=== PATIENT | male | born 1950 | race Caucasian/White ===

== ENCOUNTER 2020-05-30 05:09 | Emergency (ER) | payer MEDICARE, OTHER, SELFPAY ==
[2020-05-30 05:13] VITALS: BP 183/97; PULSE 84; RESP 18; TEMP 36.9; O2SAT 95; BMI 35.6
[2020-05-30] MEDS: famotidine 20 mg/2 mL INJ 40 MG IVP (05:20)
[2020-05-30] MEDS: diphenhydrAMINE 50 mg/mL SDV 1mL IVP (05:21)
--- NOTE | 2020-05-30 05:21 | W.ED.ALLEREA ---
HPI - Allergic Reaction General: Chief complaint: Allergic Reaction Stated complaint: swollen tongue Time Seen by Provider: 05/30/20 05:09 Source: patient Mode of arrival: ambulatory Limitations: no limitations History of Present Illness: HPI narrative: 70-year-old male who has a history of allergic reactions in the past. He states that he has had tongue swelling in the past and typically would go down on its own. He states that the swelling throughout the night does have angioedema here. He states he has some slight shortness of breath. He is handling his secretions well. He is not on any ANNIE inhibitor's. He states he has been getting rashes as well and has been taking Benadryl at home. He denies any worsening or improving factors. Denies any chest pain. MD complaint: allergic reaction Associated symptoms: Deny abdominal pain, nausea or vomiting Review of Systems Const: Denies: fever(s), chills, body aches or change in appetite Eyes: Denies: blurry vision or eye discomfort ENMT: Reports: swelling of lips/tongue; Denies: throat pain or dental pain Card: Denies: chest pain Resp: Denies: dyspnea GI: Denies: abdominal pain, nausea, vomiting or diarrhea : Denies: dysuria Musc: Denies: neck pain or back pain Skin/Breast: Denies: rash Neuro: Denies: headache(s) Psych: Denies: depression Young/Lymph: Denies: easy bruising All/Imm: Denies: urticaria Physical Exam Const: COMMON NORMALS: no acute distress, patient oriented x3 and healthy appearing HENMT: COMMON NORMALS: normocephalic and atraumatic HEAD & SCALP: normocephalic and atraumatic OTHER: Angioedema of tongue. He is handling his secretions well. No respiratory distress at this time. Eye: COMMON NORMALS: Equal, round and reactive pupils present and EOMs intact bilaterally PUPIL: Yes Equal, round and reactive pupils present Neck/C-Spine: COMMON NORMALS: full ROM and supple Chest: COMMONS NORMALS: normal inspection of the chest and normal palpation of entire chest wall Resp: COMMON NORMALS: normal respiratory effort, No retractions, No use of accessory muscles and clear to auscultation bilaterally AUSCULTATION: clear to auscultation bilaterally Cardio: COMMON NORMALS: regular rate, regular rhythm and No murmurs present (Cardio) RATE: regular rate RHYTHM: regular rhythm GI: COMMON NORMALS: Normal to inspection, nondistended, normoactive bowel sounds present, Soft to palpation, non-tender and no masses PALPATION: Yes Soft to palpation Extremity: COMMON NORMALS: normal to inspection and full ROM Neuro: COMMON NORMALS: patient oriented x3, moves all extremities and no focal motor deficits Psych: COMMON NORMALS: mental status grossly normal, Normal thought process present and cooperative THOUGHT PROCESS: Normal thought process present Skin: COMMON NORMALS: no rashes or lesions noted and no wounds GENERAL SKIN EXAM: no rashes or lesions noted Course Vital Signs: Vital signs: Vital Signs Temperature 98.4 F 05/30/20 05:13 Pulse Rate 85 05/30/20 06:20 Respiratory Rate 16 05/30/20 06:20 Blood Pressure 132/62 05/30/20 06:20 Pulse Oximetry 94 05/30/20 06:20 MDM - Allergic Reaction MDM Narrative: Medical decision making narrative: Patient presents here with angioedema moderate in nature. He has been handling his secretions well here and has had no distress respiratory distress. He does have moderate tongue swelling. I see no posterior pharynx swelling on exam. He has no lip swelling. Patient was given epinephrine along with Solu-Medrol and Pepcid. Patient has had improvement here. I did recommend admission. Patient was seen in the ER by hospitalist in which she told hospitalist she want to go home. I came and spoke to patient at length along with his . He states he had this multiple times before but always gets better. He states he is feeling much better already and he is speaking much better and the swelling is going down. He states that he does not want to be admitted and would like to be discharged. We will watch him till 7 if he continues to improve he states he wants to leave at 7. Lab Data: Labs: Lab Results 05/30/20 05/30/20 Range/Units 05:18 05:18 WBC 6.7 (4.0-10.0) 10^3/ uL RBC 5.24 (4.1-5.3) 10^6/u L Hgb 15.6 (11.7-16.6) g/dL Hct 47.4 (42.0-52.0) % MCV 90.5 (80-94) fL MCH 29.8 (28.0-34.0) pg MCHC 32.9 (30.0-36.0) g/dL RDW 13.1 (12.1-15.1) % Plt Count 271 (130-400) 10^3/c mm MPV 10.8 H (7.4-10.4) fL Neut % (Auto) 40.7 % Lymph % (Auto) 44.0 % Preble % (Auto) 8.9 % Eos % (Auto) 5.4 % Baso % (Auto) 0.5 % Neut # (Auto) 2.72 (1.8-7.7) 10^3/u L Lymph # (Auto) 2.9 (0.8-4.8) 10^3/u L Preble # (Auto) 0.6 (0.2-0.9) 10^3/u L Eos # (Auto) 0.4 (0.0-0.8) 10^3/u L Baso # (Auto) 0.0 (0.0-0.1) 10^3/u L Nucleated RBC % (a uto) 0 % Nucleated RBCs # 0.0 /100WBC Sodium 141 (136-145) mmol/L Potassium 4.1 (3.5-5.1) mmol/L Chloride 101 (98-107) mmol/L Carbon Dioxide 28 (22-29) mmol/L Anion Gap 16.1 (5-19) BUN 12 (8-23) mg/dL Creatinine 0.7 (0.7-1.2) mg/dL GFR Calculation 112.1 (90-130) mL/min Glucose 173 H (65-115) mg/dL Calculated Osmolal ity 296 H (285-295) mOsm/k g Calcium 9.9 (8.5-10.5) mg/dL Total Bilirubin 0.4 (0.15-1.2) mg/dL AST 19 (0-40) U/L ALT 25 (0-41) U/L Alkaline Phosphata se 94 (40-130) IU/L Total Protein 7.3 (6.6-8.7) g/dL Albumin 4.7 (3.5-5.2) g/dL Globulin 2.6 (1.3-4.6) g/dL Critical Care Time Critical Care Time: Critical Care Time: Yes Total Critical Care Time: 36 Attestation: This case had a high probability of a clinically significant, sudden, or life threatening deterioration of this patient's condition which required my full and direct attention, intervention and personal management. Discharge Plan Discharge Patient Disposition: Home Clinical Impression: Angioedema Qualifiers: Encounter type: initial encounter Qualified Code(s): T78.3XXA - Angioneurotic edema, initial encounter Condition: Stable Discharge Orders: Discharge Order (Routine); Ordered 05/30/20 Ordered By: Yue Gonzales Discharge ED (Routine); Ordered 05/30/20 Ordered By: Yue Gonzales Discharge Diet: Advance as tolerated Discharge Activity: Resume usual activity Coding Level of Care Code ED [employer] Exam Comprehensive
[2020-05-30 05:23] LABS: Basophils % 0.5 %; Eosinophils # 0.4 10^3/uL (0.0-0.8); Eosinophils % 5.4 %; Hematocrit 47.4 % (42.0-52.0); Hemoglobin 15.6 g/dL (11.7-16.6); Lymphocytes # 2.9 10^3/uL (0.8-4.8); Mean Corpuscular HGB Conc 32.9 g/dL (30.0-36.0); Mean Corpuscular Hemoglobin 29.8 pg (28.0-34.0); Mean Corpuscular Volume 90.5 fL (80-94); Mean Platelet Volume 10.8 fL (7.4-10.4); Monocytes # 0.6 10^3/uL (0.2-0.9); Monocytes % 8.9 %; Neutrophils # 2.72 10^3/uL (1.8-7.7); Neutrophils % 40.7 %; Nucleated Red Blood Cells % 0 %; Platelet Count 271 10^3/cmm (130-400); Red Blood Count 5.24 10^6/uL (4.1-5.3); Red Cell Distribution Width 13.1 % (12.1-15.1); White Blood Count 6.7 10^3/uL (4.0-10.0)
[2020-05-30] MEDS: EPINEPHrine 1 mg/mL INJ 0.3 MG IM (05:23)
[2020-05-30 05:57] LABS: Alanine Aminotransferase 25 U/L (0-41); Albumin Level 4.7 g/dL (3.5-5.2); Alkaline Phosphatase 94 IU/L (40-130); Anion Gap 16.1 (5-19); Aspartate Amino Transferase 19 U/L (0-40); Blood Urea Nitrogen 12 mg/dL (8-23); Calcium 9.9 mg/dL (8.5-10.5); Carbon Dioxide 28 mmol/L (22-29); Chloride 101 mmol/L (98-107); Globulin 2.6 g/dL (1.3-4.6); Glomerular Filtration Rate 112.1 mL/min (90-130); Glucose 173 mg/dL (65-115); Osmolality Calculated 296 mOsm/kg (285-295); Potassium 4.1 mmol/L (3.5-5.1); Sodium 141 mmol/L (136-145); Total Bilirubin 0.4 mg/dL (0.15-1.2); Total Protein 7.3 g/dL (6.6-8.7)
[2020-05-30 06:20] VITALS: BP 132/62; PULSE 85; RESP 16; O2SAT 94
--- NOTE | 2020-05-30 06:23 | PC.NURSE ---
Pt states he does not want to stay even though dr would like them to.
[2020-05-30 07:46] VITALS: BP 140/78; PULSE 78; RESP 18; O2SAT 97
== END 2020-05-30 07:05 | disposition home or self-care (01) ==
LOC: ER 06:01 → ICU 06:22
PROVIDERS: Emergency Provider Emergency Medicine; PCP Family Medicine
DX: T78.3XXA Angioneurotic edema, initial encounter (principal)
CPT/HCPCS: 80053; 85025; 96372; 96374; 96375; 99284; J0171; J1200; J2930; J3490

== ENCOUNTER → 2021-11-26 09:08 | Outpatient (BNVA) | payer MEDICARE, OTHER, SELFPAY | PROVIDERS: PCP Family Medicine; Visit Provider Family Medicine | DX: R63.5 Abnormal weight gain (principal); R60.9 Edema, unspecified; R14.0 Abdominal distension (gaseous); R53.83 Other fatigue; R63.0 Anorexia; Z86.39 Personal history of other endocrine, nutritional and metabolic disease | CPT/HCPCS: 80053; 83690; 84443; 85025; 85651 ==

== ENCOUNTER 2021-11-30 08:37 | Emergency (ER) | payer MEDICARE, OTHER, SELFPAY ==
[2021-11-30 08:39] VITALS: BMI 34.0
[2021-11-30 08:45] VITALS: BP 132/97; PULSE 101; RESP 20; O2SAT 100
--- NOTE | 2021-11-30 08:59 | CT_ITS ---
WS: [id number] CT ABDOMEN PELVIS TECHNIQUE: Contrast-enhanced CT of the abdomen and pelvis with coronal and sagittal reformatted image s. CLINICAL INFORMATION: abd pain COMPARISON: None. DLP: 1170.[address] scans at [facility] use at least one of these dose optimization techniques: automated e xposure control; mA and/or kV adjustment per patient size (includes targeted exams where dose is matc hed to clinical indication); or iterative reconstruction. FINDINGS: Diffuse moderate to large abdominal ascites. Tiny LEFT pleural effusion. Subsegmental atelectasis in the lingula and lung bases. Perihepatic and perisplenic ascites. Normal GE junction. Air-fluid level in the stomach. Liver appears cirrhotic. Recommend correlation with liver function tests. Fatty atrop hy of the pancreas. Portal vein is patent. Adrenal glands are normal. Normal renal parenchymal enhanc ement. No hydronephrosis. Mesenteric induration in the mid and upper abdomen can be seen with edema but peritoneal carcinomatos is are not excluded. Enhancing small bowel loops are displaced into the midabdomen with mesenteric in duration. Normal caliber abdominal aorta. Celiac and SMA are patent. A few sigmoid diverticuli. Mild diffuse body wall anasarca. No evidence of high-grade small or large bowel obstruction. No periaortic or pelvic lymphadenopathy. No inguinal lymphadenopathy. CT/CT abdomen pelvis w con* [id number] IMPRESSION: 1. Moderate to large amount of abdominal ascites. 2. Cirrhotic configuration to the liver. Recommend correlation with liver func tion tests. 3. Induration in the mesentery may be due to edema but can be seen with perito corbin carcinomatosis. Peritoneal fluid could be sent for cytology. 4. Subsegmental atelectasis in the lung bases. No periaortic or pelvic lymphad enopathy. No inguinal lymphadenopathy. 5. Mild diffuse body wall anasarca. 6. Clustering of enhancing small bowel loops in the central abdomen with mesen teric induration. Although no evidence of high-grade small or large bowel obstr uction.
--- NOTE | 2021-11-30 08:59 | ECG_ITS ---
[facility] Test Date: 2021-11-30 Pat Name: Amauri Cruz Department: Room: Gender: Male Scuba Diver: : 1950 Requested By: Roldan Alvarez Order Number: [id number] Laura MD: Shauna Thorpe M.D. Measurements Intervals [place] Rate: 93 P: 12 MO: 179 QRS: -5 QRSD: 112 T: 7 QT: 375 QTc: 468 Interpretive Statements SINUS RHYTHM WITH OCCASIONAL SUPRAVENTRICULAR PREMATURE COMPLEXES POSSIBLE ANTERIOR MYOCARDIAL INFARCTION , PROBABLY OLD [30 ms Q WAVE IN V3/V4, OR R < 0.2 mV IN V4] No previous ECG available for comparison Electronically Signed On 11-30-2021 13:53:51 CDT by Shauna Thorpe M.D. [id number]
--- NOTE | 2021-11-30 09:00 | XR_ITS ---
WS: [id number] XR chest 1V portable [id number] REASON FOR EXAM: dyspnea FINDINGS: Moderate tortuosity and ectasia of the thoracic aorta. Normal heart size. Elevation of both hemidiaphragms. Blunting of both costophrenic angles more prominently on the right. Linear lung opacities adjacent to the elevated hemidiaphragms, likely atelectasis. No acute pulmonary parenchymal abnormality is identified. The stomach is moderately distended. XR/XR chest 1V portable [id number] IMPRESSION: Bilateral pleural fluid and/or pleural thickening. No acute pulmonary parenchymal abnormality. Distended stomach.
--- NOTE | 2021-11-30 09:01 | W.ED.ABDPA2 ---
HPI - Abdominal Pain General: Chief Complaint: Abdominal Pain Stated Complaint: bloated Time Seen by Provider: 11/30/21 08:46 Source: patient Mode of arrival: ambulatory History of Present Illness: 71-year-old male presents to the emergency room with complaints of bloating. He notes over the last several weeks had increased bloating to his abdomen he has gained several pounds in the last few days. It is causing him to have difficulty with activity he has noticed that he gets fatigued more and winded more easily. He has some moderate orthopnea. He denies any chest pain no recent fever sweats chills bowel bladder been unchanged from his usual routine. He occasionally has had some streaking blood on the outside of stools after difficult bowel movement but otherwise no other abnormality. He has no history of heart disease or liver disease he denies being a heavy drinker. No history of hepatitis. No jaundice. His appetite has been poor but he has been able to eat and drink without nausea or vomiting no hematochezia melena hematemesis coffee-ground emesis. Onset (ago): week(s) Pain Consistency: constant Location: Diffuse Severity: severe Quality: fullness Radiation: none Migration to: no migration Exacerbating factors: nothing Relieving factors: nothing Associated Symptoms: Reports anorexia, bloating, GI cramping, nausea and poor appetite; Denies belching, change in bowel habits, change in stool character, chills, coffee ground emesis, constipation, diarrhea, dyspepsia, dysuria, excessive flatus, fever(s), heartburn, hematochezia, hematuria, hematemesis, fecal incontinence, loose stools, melena, syncope and vomiting Review of Systems Const: Denies: fever(s) or chills Card: Denies: syncope GI: Reports: nausea, early satiety, bloating and GI cramping; Denies: vomiting, hematemesis, coffee ground emesis, heartburn, diarrhea, constipation, belching, excessive flatus, fecal incontinence, change in bowel habits, change in stool character, hematochezia or melena : Denies: flank pain, difficulty urinating, dysuria, urinary frequency, urinary urgency or hematuria PFS ED PFSH: Medical History History of hypothyroidism Hx of type 2 diabetes mellitus Social History Smoking and tobacco status: never smoked Second hand smoke exposure: No Smoking risk assessment/counseling performed?: No Alcohol intake: never Desire information about alcohol rehabilitation?: No Counseling given: No Desire information about substance/drug rehabilitation?: No Counseling given: No Adopted: No Caregiver/support person: No Lives independently: No Household members: spouse Housing: Manufactured/Mobile home Marital status: Number of children: 3 Highest education level completed: High School Graduate service: Yes Current occupational status: retired History of recent travel: No Physical Exam Const: COMMON NORMALS: no acute distress GENERAL APPEARANCE: cooperative and comfortable ORIENTATION/CONSCIOUSNESS: Yes awake, Yes oriented to person, Yes oriented to place and Yes oriented to time HENMT: COMMON NORMALS: normocephalic, atraumatic and hearing grossly normal bilaterally HEAD & SCALP: normocephalic and atraumatic Resp: COMMON NORMALS: normal respiratory effort, No retractions, No use of accessory muscles and clear to auscultation bilaterally AUSCULTATION: clear to auscultation bilaterally Cardio: COMMON NORMALS: regular rate, regular rhythm and No murmurs present (Cardio) RATE: regular rate RHYTHM: regular rhythm GI: COMMON NORMALS: Soft to palpation and No hepatosplenomegaly present INSPECTION: Yes abdominal distension and Yes Fluid wave present AUSCULTATION: Yes normoactive bowel sounds PALPATION: Yes Soft to palpation, No Tenderness to palpation present (GI), No Guarding due to palpation present (GI) and Yes No hepatosplenomegaly present PERCUSSION: dullness to percussion and Fluid wave present Extremity: COMMON NORMALS: normal to inspection, capillary refill normal, no clubbing, cyanosis or edema, no calf tenderness and no pedal edema Neuro: SENSORIUM/ORIENTATION: Yes oriented to person, Yes oriented to place and Yes oriented to time Skin: COMMON NORMALS: no rashes or lesions noted GENERAL SKIN EXAM: no rashes or lesions noted Course Vital Signs: Vital signs: Vital Signs Pulse Rate 101 H 11/30/21 08:45 Respiratory Rate 20 H 11/30/21 08:45 Blood Pressure 132/97 11/30/21 08:45 Pulse Oximetry 100 11/30/21 08:45 Oxygen Delivery Me thod 11/30/21 08:45 MDM - Abdominal Pain Medical Decision Making Ascites with tethering of the small bowel. Patient has had previous umbilical hernia surgery but no major abdominal surgeries. 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 Will make arrangements for outpatient paracentesis tomorrow with Dr. Pastrana. We contacted Dr. Pastrana he was able to do the procedure today patient had already been discharged we were able to catch him before he left we will hold him in the ER until the time they are ready for him in outpatients with able do the procedure. Medical Records I reviewed the patient's medical records. Lab Data I reviewed the patient's lab results. : 11/30/21 09:16 11/30/21 09:16 Labs/Radiology: Radiology Impressions Abdomen/Pelvis CT 11/30/21 08:59 IMPRESSION: 1. Moderate to large amount of abdominal ascites. 2. Cirrhotic configuration to the liver. Recommend correlation with liver function tests. 3. Induration in the mesentery may be due to edema but can be seen with peritoneal carcinomatosis. Peritoneal fluid could be sent for cytology. 4. Subsegmental atelectasis in the lung bases. No periaortic or pelvic lymphadenopathy. No inguinal lymphadenopathy. 5. Mild diffuse body wall anasarca. 6. Clustering of enhancing small bowel loops in the central abdomen with mesenteric induration. Although no evidence of high-grade small or large bowel obstruction. Chest X-Ray 11/30/21 09:00 IMPRESSION: Bilateral pleural fluid and/or pleural thickening. No acute pulmonary parenchymal abnormality. Distended stomach. Laboratory Results WBC 7.9 10^3/uL (4.0-10.0) 11/30/21 09:16 RBC 4.98 10^6/uL (4.1-5.3) 11/30/21 09:16 Hgb 13.9 g/dL (11.7-16.6) 11/30/21 09:16 Hct 43.8 % (42.0-52.0) 11/30/21 09:16 MCV 88.0 fl (80-94) 11/30/21 09:16 MCH 27.9 pg (28.0-34.0) L 11/30/21 09:16 MCHC 31.7 g/dL (30.0-36.0) 11/30/21 09:16 RDW 13.0 % (12.1-15.1) 11/30/21 09:16 Plt Count 413 10^3/cmm (130-400) H 11/30/21 09:16 MPV 9.7 fL (7.4-10.4) 11/30/21 09:16 Neut % (Auto) 70.7 % 11/30/21 09:16 Lymph % (Auto) 17.9 % 11/30/21 09:16 Whitley % (Auto) 8.3 % 11/30/21 09:16 Eos % (Auto) 2.4 % 11/30/21 09:16 Baso % (Auto) 0.3 % 11/30/21 09:16 Neut # (Auto) 5.61 10^3/uL (1.8-7.7) 11/30/21 09:16 Lymph # (Auto) 1.4 10^3/uL (0.8-4.8) 11/30/21 09:16 Whitley # (Auto) 0.7 10^3/uL (0.2-0.9) 11/30/21 09:16 Eos # (Auto) 0.2 10^3/uL (0.0-0.8) 11/30/21 09:16 Baso # (Auto) 0.0 10^3/uL (0.0-0.1) 11/30/21 09:16 Nucleated RBC % (auto) 0 % 11/30/21 09:16 Nucleated RBCs # 0.0 /100WBC 11/30/21 09:16 PT 13.90 SECONDS (12.1-14.9) 11/30/21 09:16 INR 1.04 (0.8-1.2) 11/30/21 09:16 APTT 29.0 SECONDS (23.9-36.7) 11/30/21 09:16 Sodium 137 mmol/L (136-145) 11/30/21 09:16 Potassium 3.9 mmol/L (3.5-5.1) 11/30/21 09:16 Chloride 96 mmol/L (98-107) L 11/30/21 09:16 Carbon Dioxide 27 mmol/L (22-29) 11/30/21 09:16 Anion Gap 17.9 (5-19) 11/30/21 09:16 BUN 7 mg/dL (8-23) L 11/30/21 09:16 Creatinine 0.7 mg/dL (0.7-1.2) 11/30/21 09:16 GFR Calculation 111.8 mL/min (90-130) 11/30/21 09:16 Glucose 148 mg/dL (65-115) H 11/30/21 09:16 Calculated Osmolality 285 mOsm/kg (285-295) 11/30/21 09:16 Calcium 9.2 mg/dL (8.5-10.5) 11/30/21 09:16 Total Bilirubin 0.5 mg/dL (0.15-1.2) 11/30/21 09:16 AST 18 U/L (0-40) 11/30/21 09:16 ALT 16 U/L (0-41) 11/30/21 09:16 Alkaline Phosphatase 73 U/L (40-130) 11/30/21 09:16 Total Protein 6.8 g/dL (6.6-8.7) 11/30/21 09:16 Albumin 3.7 g/dL (3.5-5.2) 11/30/21 09:16 Globulin 3.1 g/dL (1.3-4.6) 11/30/21 09:16 Lipase 8 U/L (13-60) L 11/30/21 09:16 Discharge Plan Discharge Patient Disposition: Home Clinical Impression: Abdominal ascites Condition: Stable Prescriptions: No Action amlodipine 10 mg tablet 10 mg PO DAILY indomethacin 50 mg capsule 50 mg PO TID PRN Rx Instructions: administer with food or milk levothyroxine 75 mcg capsule 75 mcg PO DAILY Qty: 90 1RF Discharge Orders: Discharge ED (Routine); Ordered 11/30/21 Ordered By: Roldan Butts Referrals: Daniel Stafford DO [Primary Care Provider] - Discharge Diet: Usual diet Discharge Activity: Resume usual activity Patient Instructions: Opioid Safety, Pain Management Activity Restrictions/Additional Instructions: Arrangements are being made for a paracentesis in outpatient surgery tomorrow. Coding Level of Care Code ED [employer] for [employer] Exam Detailed
[2021-11-30 09:24] LABS: Basophils % 0.3 %; Eosinophils # 0.2 10^3/uL (0.0-0.8); Eosinophils % 2.4 %; Hematocrit 43.8 % (42.0-52.0); Hemoglobin 13.9 g/dL (11.7-16.6); Lymphocytes # 1.4 10^3/uL (0.8-4.8); Lymphocytes % 17.9 %; Mean Corpuscular HGB Conc 31.7 g/dL (30.0-36.0); Mean Corpuscular Hemoglobin 27.9 pg (28.0-34.0); Mean Platelet Volume 9.7 fL (7.4-10.4); Monocytes # 0.7 10^3/uL (0.2-0.9); Monocytes % 8.3 %; Neutrophils # 5.61 10^3/uL (1.8-7.7); Neutrophils % 70.7 %; Nucleated Red Blood Cells % 0 %; Platelet Count 413 10^3/cmm (130-400); Red Blood Count 4.98 10^6/uL (4.1-5.3); White Blood Count 7.9 10^3/uL (4.0-10.0)
[2021-11-30] MEDS: iohexol 350 mg/mL 100 mL Btl IV (09:28)
[2021-11-30 09:42] LABS: INR 1.04 (0.8-1.2)
[2021-11-30 09:54] LABS: Alanine Aminotransferase 16 U/L (0-41); Albumin Level 3.7 g/dL (3.5-5.2); Alkaline Phosphatase 73 U/L (40-130); Anion Gap 17.9 (5-19); Aspartate Amino Transferase 18 U/L (0-40); Blood Urea Nitrogen 7 mg/dL (8-23); Calcium 9.2 mg/dL (8.5-10.5); Carbon Dioxide 27 mmol/L (22-29); Chloride 96 mmol/L (98-107); Globulin 3.1 g/dL (1.3-4.6); Glomerular Filtration Rate 111.8 mL/min (90-130); Glucose 148 mg/dL (65-115); Lipase 8 U/L (13-60); Osmolality Calculated 285 mOsm/kg (285-295); Potassium 3.9 mmol/L (3.5-5.1); Sodium 137 mmol/L (136-145); Total Bilirubin 0.5 mg/dL (0.15-1.2); Total Protein 6.8 g/dL (6.6-8.7)
--- NOTE | 2021-11-30 10:18 | PC.NURSE ---
pt placed on continuous spo2, nibp, and cm.
== END 2021-11-30 11:45 | disposition home or self-care (01) ==
PROVIDERS: Emergency Provider Family Medicine; PCP Family Medicine
DX: R18.8 Other ascites (principal); E11.9 Type 2 diabetes mellitus without complications; E03.9 Hypothyroidism, unspecified
CPT/HCPCS: 49082; 49083; 71045; 74177; 76705; 80053; 80503; 82042; 82150; 82465; 82945; 83615; 83690; 83986; 84075; 84157; 84315; 84478; 84560; 85025; 85610; 85730; 87015; 87070; 87075; 87116; 87205; 87206; 87801; 88108; 89050; 93005; 99285; Q9967

== ENCOUNTER 2021-11-30 11:48 | Day surgery (SDC) | payer MEDICARE, OTHER, SELFPAY ==
--- NOTE | 2021-11-30 12:02 | US_ITS ---
WS: [id number] INDICATION: Ascites TECHNIQUE: Four-quadrant ultrasound FINDINGS: Ultrasound used for paracentesis marking. Moderate to large amount of abdominal ascites. US/US abdomen lmt fluid [id number] IMPRESSION: Ultrasound used for paracentesis marking.
[2021-11-30 12:09] VITALS: BP 134/98; PULSE 95; RESP 16; TEMP 35.6; O2SAT 96; BMI 35.2
[2021-11-30 13:19] LABS: Body Fluid Polynuclear #Cells 0.043; Body Fluid WBC 316 /uL; Monocytes # Body Fluid 0.273
[2021-11-30 13:24] LABS: Apprearance, Body Fluid CLEAR; Color, Body Fluid PALE YELLOW
[2021-11-30 13:24] LABS: Cyto Order Verification Order Verified
[2021-11-30 13:35] LABS: Albumin Body Fluid 2.5 g/dL; Amylase Body Fluid 11 U/L; Cholesterol Body Fluid 88 mg/dL (0-200); Fluid Alkaline Phos. 29 IU/L; LDH Body Fluid 162 U/L; Total Protein Body Fluid 3.8 g/dL; Triglycerides Body Fluid 64 mg/dL (0-150); Uric Acid Body Fluid 6 mg/dL
--- NOTE | 2021-11-30 15:50 | PM.ACPR ---
Acute Procedures Paracentesis: Time out performed: Yes Indication: Ascites Procedure: diagnostic paracentesis Location: RLQ Local anesthetic used: lidocaine 1% Amount of anesthesia used (ml): 5 Bedside ultrasound used: yes, Ascites confirmed and location marked Preparation: sterile prep and drape and 11 blade used to make radu in skin Amount of fluid obtained (ml): 11,000 Fluid: clear and sent to lab for analysis Post procedure exam: awake, alert, normal BP, normal HR and normal SpO2 Patient tolerated procedure: well and no complications Complications: none Additional comments: I was asked to do the procedure somewhat urgently as the radiologist had read out his CT scan as possible carcinomatosis of the omentum. On exam, his fluid was quite clear as would be a transudative fluid. Nonetheless, we sent it for analysis. Fair warning though, cytology on peritoneal fluid is notoriously insensitive to malignancy.
== END 2021-11-30 14:09 | disposition home or self-care (01) ==
LOC: GILAB 11:49
PROVIDERS: PCP Family Medicine; Visit Provider Internal Medicine
PROC: (CPT 49082; principal; 2021-11-30 13:00)
DX: R18.8 Other ascites (principal)
CPT/HCPCS: 49082; 49083; 76705; 80503; 82042; 82150; 82465; 82945; 83615; 83986; 84075; 84157; 84315; 84478; 84560; 87015; 87070; 87075; 87116; 87205; 87206; 87801; 88108; 88305; 89050